=== PATIENT | male | born 1985 | race Two or more races ===

== ENCOUNTER 2019-08-06 16:59 | Inpatient (IN) | payer SELFPAY ==
[~2019-08-06] VITALS: Ht 185.4 cm; Wt 99.0 kg
[2019-08-06] MEDS ORDERED: ETOMIDATE (2MG/ML) 20ML VIAL IV ONE (17:05)
[2019-08-06] MEDS ORDERED: MIDAZOLAM DRIP 50 mg/50mL 50 ML IV ONE (17:06)
[2019-08-06] MEDS ORDERED: SUCCINYLCHOLINE CHLORIDE 20 MG/ML 10ML VIAL IV ONE ×2 (17:10→17:15)
[2019-08-06] MEDS: MIDAZOLAM DRIP 50 mg/50mL 50 ML IV SCH (17:15)
[2019-08-06] MEDS ORDERED: SODIUM CHLORIDE 0.9% 2,000 ML IV ONE (17:15)
[2019-08-06] MEDS ORDERED: MIDAZOLAM HCL 5 MG/ML-1ML VIAL IV ONE (17:15)
[2019-08-06] MEDS ORDERED: CEFTRIAXONE SODIUM 2 GM in D5W 5% 50 ML IV ONE (17:15)
[2019-08-06] MEDS ORDERED: PROPOFOL 100 ML IV ONE (17:17)
[2019-08-06] MEDS: PROPOFOL 100 ML IV SCH (17:19)
[2019-08-06 17:28] LABS: Basophils # (auto) 0 uL; Basophils % (auto) 0.3 % (0.0-2.0); Eosinophils # (auto) 0.3 uL; Eosinophils % (auto) 3.3 % (0.0-7.0); Hematocrit 44.4 % (41.0-53.0); Hemoglobin 14.6 g/dL (13.5-17.5); Lymphocytes # (auto) 4.8 uL; Lymphocytes % (auto) 54.8 % (10.0-50.0); Mean Corpuscular Hemoglobin 29.2 pg (28.0-32.0); Mean Corpuscular Hgb Conc. 32.9 g/dL (32.0-36.0); Mean Corpuscular Volume 88.8 fL (80.0-100.0); Monocytes # (auto) 0.8 uL; Monocytes % (auto) 9.6 % (0.0-12.0); Neutrophils # (auto) 2.8 uL; Nucleated Red Blood Cells % 0.2 %; Platelet Count (auto) 263 10^3/uL (140-450); Red Cell Distribution Width 14.2 % (11.8-14.3); White Blood Cell 8.7 10^3/uL (4.4-10.8)
[2019-08-06 17:43] LABS: Alanine Aminotransferase 29 U/L (16-61); Albumin 3.9 g/dL (3.4-5.0); Anion Gap 21 (5-15); Aspartate Aminotransferase 25 U/L (15-37); BUN/Creatinine Ratio 14.6; Blood Urea Nitrogen 21 mg/dL (7-18); Calcium 8.6 mg/dL (8.5-10.1); Carbon Dioxide 15 mmol/L (21-32); Chloride 106 mmol/L (98-107); GFR African American 71 mL/min; GFR Non-African American 59 mL/min; Glucose 142 mg/dL (74-106); Potassium 3.4 mmol/L (3.5-5.1); Sodium 142 mmol/L (136-145)
[2019-08-06 17:48] LABS: Alkaline Phosphatase 66 U/L (45-117); Bilirubin, Total 0.6 mg/dL (0.2-1.0); Total Protein 8.3 g/dL (6.4-8.2)
[2019-08-06 18:19] LABS: Alcohol, Urine < 3.0 mg/dL (0-5); Amphetamine Screen, Urine POSITIVE (NEGATIVE); Cannabinoid Screen, Urine NEGATIVE (NEGATIVE)
[2019-08-06 18:27] VITALS: BP 122/89
[2019-08-06 18:27] LABS: Barbiturate Scree,Urine NEGATIVE (NEGATIVE); Benzodiazephine Screen, Urine NEGATIVE (NEGATIVE); Cocaine Screen, Urine NEGATIVE (NEGATIVE); Opiate Scree,Urine POSITIVE (NEGATIVE); Phencyclidine Screen, Urine NEGATIVE (NEGATIVE)
[2019-08-06] MEDS ORDERED: TETANUS-DIPTH-ACEL PERTUSSIS 0.5ML SYRG IM ONE (19:30)
[2019-08-06 19:52] VITALS: BP 129/84
[2019-08-06] MEDS ORDERED: ONDANSETRON HCL 4 MG/2 ML VIAL IV PRN (20:30)
[2019-08-06] MEDS ORDERED: NITROGLYCERIN 0.4 MG SL TAB SL PRN (20:45)
[2019-08-06] MEDS ORDERED: MORPHINE SULF INJ 2 MG/ML SYRINGE 1ML IV PRN (20:45)
[2019-08-06 21:35] LABS: BUN/Creatinine Ratio 16.1; Calcium 8.3 mg/dL (8.5-10.1); Potassium 4.1 mmol/L (3.5-5.1)
[2019-08-06] MEDS: SODIUM CHLORIDE 0.9% 1,000 ML IV SCH (21:35)
[2019-08-06 22:00] VITALS: BP 130/89
[2019-08-07] VITALS (7 sets, daily range): BP systolic 113–130; BP diastolic 70–90
[2019-08-07] MEDS: SODIUM CHLORIDE 0.9% 1,000 ML IV SCH ×2 (06:23→16:30)
[2019-08-07 06:28] LABS: Basophils # (auto) 0 uL; Basophils % (auto) 0.3 % (0.0-2.0); Eosinophils # (auto) 0.1 uL; Eosinophils % (auto) 1.6 % (0.0-7.0); Hematocrit 39.6 % (41.0-53.0); Hemoglobin 13.5 g/dL (13.5-17.5); Lymphocytes # (auto) 1.2 uL; Lymphocytes % (auto) 20.3 % (10.0-50.0); Mean Corpuscular Hemoglobin 29.7 pg (28.0-32.0); Mean Corpuscular Hgb Conc. 34.1 g/dL (32.0-36.0); Mean Corpuscular Volume 86.9 fL (80.0-100.0); Monocytes # (auto) 0.9 uL; Monocytes % (auto) 14.9 % (0.0-12.0); Neutrophils # (auto) 3.7 uL; Neutrophils % (auto) 62.9 % (37.0-80.0); Nucleated Red Blood Cells % 0.1 %; Platelet Count (auto) 209 10^3/uL (140-450); Red Blood Cells 4.56 10^6/uL (4.5-5.90); Red Cell Distribution Width 14.2 % (11.8-14.3); White Blood Cell 5.8 10^3/uL (4.4-10.8)
[2019-08-07 06:50] LABS: Calcium 8.5 mg/dL (8.5-10.1); Potassium 4.3 mmol/L (3.5-5.1)
[2019-08-07 06:52] LABS: BUN/Creatinine Ratio 13.9
[2019-08-07] MEDS: MIDAZOLAM DRIP 50 mg/50mL 50 ML IV SCH (08:47)
[2019-08-07] MEDS: PANTOPRAZOLE 40 MG/10 ML VIAL INJ IV SCH (09:36)
[2019-08-07] MEDS: ENOXAPARIN SOD 40 MG/0.4 ML SYRINGE SC SCH (09:36)
[2019-08-07] MEDS: PROPOFOL 100 ML IV SCH (11:42)
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
[2019-08-07] MEDS: DexMEDEtomidine 400 MCG in D5W 5% 96 ML IV SCH ×3 (14:20→18:17)
--- NOTE | 2019-08-07 14:35 | NUR ---
Respiratory note: PT WAS EXTUBATED AND PLACED ON COOL MIST 8L 35% FIO2. NO STRIDOR NOTED. COARSE BREATH SOUNDS HEARD. PT HAS A STRONG COUGH. HR 103, RR 16, POX 100%, BP 126/82.
[2019-08-07] MEDS ORDERED: METHADONE HCL 10 MG TAB PO ONE (16:45)
[2019-08-08] MEDS: SODIUM CHLORIDE 0.9% 1,000 ML IV SCH ×3 (03:37→22:30)
[2019-08-08] MEDS: ENOXAPARIN SOD 40 MG/0.4 ML SYRINGE SC SCH (10:00)
[2019-08-08] MEDS: PANTOPRAZOLE 40 MG/10 ML VIAL INJ IV SCH (10:30)
[2019-08-08] MEDS ORDERED: METHADONE HCL 10 MG TAB PO SCH (11:00)
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
[2019-08-08 12:54] VITALS: BP 124/76
[2019-08-08] MEDS ORDERED: LORazepam 0.5 MG TAB PO SCH (16:00)
--- NOTE | 2019-08-08 16:00 | NUR ---
PATIENT REPORTS HE IS GOING THROUGH WITH NATALI AND HIS, "SKIN FEELS LIKE ITS BURNING.", ASSESSED PT VITALS: T 99.1, BP 99/51, HR 89, RR 21, 02 97% ON ROOM AIR. CALLED DR PARRA AND REPORTED WITH MD NATALI AWARE, NEW ORDERS FOR ATIVAN 1 MG Q 8 HOURS.
[2019-08-08] MEDS: LORazepam 0.5 MG TAB PO SCH (16:20)
[2019-08-08 17:00] VITALS: BP 100/54
--- NOTE | 2019-08-08 19:15 | NUR ---
RECEIVED PATIENT FROM DAY SHIFT RN. PATIENT RESTING IN BED. NO S/S OF DISTRESS NOTED. C/O PAIN @ 10. WILL CHECK WITH MD FOR MEDICATION. MARIOLA INTACT AT THE BACK OF HEAD AND LEFT CORNER OF LOWER LIP. POC INSTRUCTED AND ENCOURAGED PATIENT TO CALL FOR MEDICAID BUSINESS ANALYST IF NEEDED. BED IN LOWEST POSITION WITH SIDE RAILS UP X 2. CALL ZHAO WITHIN REACH. CONTINUE TO MONITOR FOR CHANGES Q1H AND PRN.
--- NOTE | 2019-08-08 19:36 | NUR ---
MD VALENTE AT BEDSIDE.
[2019-08-08] MEDS ORDERED: METHADONE HCL 10 MG TAB PO ONE (19:45)
--- NOTE | 2019-08-08 20:49 | NUR ---
PATIENT WALKED TO BATHROOM WITH STEADY GAIT. NO S/S OF DISTRESS NOTED. CONTINUE CARE.
[2019-08-08 22:00] VITALS: BP 101/51
--- NOTE | 2019-08-08 23:41 | NUR ---
TELE PSYCH CONSULT ONGOING.
[2019-08-09] MEDS: LORazepam 0.5 MG TAB PO SCH ×2 (00:05→08:38)
--- NOTE | 2019-08-09 02:35 | NUR ---
CALLED TELE PSYCH @ [phone] FOR RESULT. FAX NUMBER ([phone]) PROVIDED. CONTINUE CARE
[2019-08-09] MEDS: SODIUM CHLORIDE 0.9% 1,000 ML IV SCH (04:46)
--- NOTE | 2019-08-09 04:58 | NUR ---
PATIENT SLEEPING. NO S/S OF DISTRESS NOTED. CONTINUE TO MONITOR.
[2019-08-09 05:49] VITALS: BP 111/62
--- NOTE | 2019-08-09 07:30 | NUR ---
Opening Shift Note Assumed care of patient, awake and alert. No S/S of distress/SOB or pain. Instructed on POC and to call for assist PRN, will continue to monitor for changes Q1hr and PRN.
[2019-08-09 09:00] VITALS: BP 115/66
[2019-08-09] MEDS: PANTOPRAZOLE 40 MG/10 ML VIAL INJ IV SCH (09:51)
[2019-08-09] MEDS: ENOXAPARIN SOD 40 MG/0.4 ML SYRINGE SC SCH (09:52)
[2019-08-09] MEDS ORDERED: METHADONE HCL 10 MG TAB PO SCH (10:00)
--- NOTE | 2019-08-09 11:33 | NUR ---
REFUSAL: PT REFUSED ELECTROENCEPHALOGRAM. STATED HE WILL NOT DO EEG IF WE DO NOT PROVIDE HIM WITH A PHONE PATIENT ADVOCATE. DR. VALENTE AND ANN PARISI NOTIFIED.
--- NOTE | 2019-08-09 11:51 | NUR ---
TREAD CUTTER AT BEDSIDE. PATIENT REFUSED EGG, STATES THAT HE JUST WANTS TO GO HOME.
--- NOTE | 2019-08-09 11:52 | NUR ---
LACE INSPECTOR'S OFFICE CALLED AND NOTIFIED OF PATIENT'S DISCHARGE. WAS TOLD THAT A LACE INSPECTOR WITH CALL BACK WITH CLEARANCE. WILL WAIT FOR CALL BACK.
[2019-08-09 12:30] VITALS: BP 137/91
--- NOTE | 2019-08-09 13:00 | NUR ---
[facility] AT BEDSIDE. PATIENT OK TO DISCHARGE.
--- NOTE | 2019-08-09 14:21 | NUR ---
Assessment Pt is a 34 yr old alert and oriented male. Prior to admit, pt lives with his mom, Mary, who is his emergency contact at [phone]. Pt used no DME and is ambulatory and independent with ADL's. Pt states he has no Primary and no insurance but that some hospital staff is helping him establish [employer] and that he will apply for SSI after that, his family supports him financially currently. Pt has no AD on file and no interest. Pt stated that his mom or girlfriend will transport him home. Pt will d/c home once medically stable. No needs assessed. Addendum: 08/09/19 at 1425 by AIMEE TERRY Amended: Links added.
--- NOTE | 2019-08-09 15:31 | NUR ---
Discharge instructions given as ordered. Encourage to follow up with PMD as instructed. All questions and concerns addressed. Patient verbalized understanding. Medication reconciliation form completed and copy given to patient. IV removed with catheter intact, pressure dressing applied. Patient taken to vehicle via wheelchair with all personal belongings, accompanied by staff member. No distress noted at time of departure.
== END 2019-08-09 15:32 | disposition home or self-care (01) | DRG 917 ==
LOC: EDBD 17:02 → ER 17:02 → TELE 17:03 → EEVIPCON 17:03 → EDBD 17:03 → WEST WING 08-08 12:14
PROVIDERS: ADMIT Nurse Practitioner; ATTEND Family Medicine
PROC: 0HQ0XZZ Repair Scalp Skin, External Approach (ICD-10-PCS; principal; 2019-08-06)
PROC: 0CQ0XZZ Repair Upper Lip, External Approach (ICD-10-PCS; 2019-08-06)
PROC: 5A1935Z Respiratory Ventilation, Less than 24 Consecutive Hours (ICD-10-PCS; 2019-08-06)
PROC: 0BH17EZ Insertion of Endotracheal Airway into Trachea, Via Natural or Artificial Opening (ICD-10-PCS; 2019-08-06)
DX: T43.621A Poisoning by amphetamines, accidental (unintentional), initial encounter (principal); G92 Toxic encephalopathy; J96.00 Acute respiratory failure, unspecified whether with hypoxia or hypercapnia; N17.0 Acute kidney failure with tubular necrosis; F11.23 Opioid dependence with withdrawal; F15.10 Other stimulant abuse, uncomplicated; S01.01XA Laceration without foreign body of scalp, initial encounter; Y00.XXXA Assault by blunt object, initial encounter; T40.601A Poisoning by unspecified narcotics, accidental (unintentional), initial encounter; S01.511A Laceration without foreign body of lip, initial encounter; Y93.89 Activity, other specified; Y92.89 Other specified places as the place of occurrence of the external cause; Y99.8 Other external cause status
CPT/HCPCS: 12001; 12013; 31500; 36415; 36600; 70450; 71045; 71250; 72125; 80048; 80053; 80307; 80320; 82805; 84484; 85025; 87070; 87205; 90715; 93005; 94002; 94003; 94640; 95819; 99291; C9113; G0378; J0330; J0696; J2250; J2704; J7060

== ENCOUNTER 2020-05-25 17:22 | Emergency (ER) | payer SELFPAY ==
[~2020-05-25] VITALS: Ht 185.4 cm; Wt 99.8 kg
[2020-05-25 17:48] VITALS: BP 155/99
== END 2020-05-25 18:08 | disposition left against medical advice (07) ==
LOC: ER 17:22
DX: T65.91XA Toxic effect of unspecified substance, accidental (unintentional), initial encounter (principal); Z53.21 Procedure and treatment not carried out due to patient leaving prior to being seen by health care provider; X58.XXXA Exposure to other specified factors, initial encounter

== ENCOUNTER 2022-10-28 12:41 | Emergency (ER) | payer MEDICAID, OTHER ==
[2022-10-28] MEDS ORDERED: SODIUM CHLORIDE 0.9% 1,000 ML IV ONE ×2 (13:30)
== END 2022-10-28 15:31 | disposition left against medical advice (07) ==
LOC: EDBD 12:41 → EDUNIT# 12:41 → ER 12:41
DX: F12.10 Cannabis abuse, uncomplicated (principal); R11.2 Nausea with vomiting, unspecified; R41.82 Altered mental status, unspecified